=== PATIENT | female | born 2000 | race Hispanic/Latino ===

== ENCOUNTER 2019-05-08 20:41 | Emergency (ER) | payer BC ==
[~2019-05-08] VITALS: Ht 175.3 cm; Wt 54.4 kg
[2019-05-08 23:25] LABS: BILIRUBIN,URINE NEGATIVE (NEGATIVE); CLARITY,URINE CLOUDY (CLEAR); COLOR,URINE YELLOW (YELLOW); KETONES,URINE NEGATIVE (NEGATIVE); LEUKOCYTE ESTERASE ,URINE TRACE (NEGATIVE); NITRITE,URINE POSITIVE (NEGATIVE); URINE UROBILINOGEN 0.2 mg/dL (0.2 - 1)
[2019-05-08 23:33] LABS: PROTEIN,URINE DIPSTICK 3+ (NEGATIVE)
[2019-05-08 23:34] LABS: PREGNANCY TEST, URINE NEGATIVE (NEGATIVE)
[2019-05-08 23:54] LABS: WBC,URINE (MAN) >50 /HPF (0-5)
[2019-05-08 23:55] LABS: BACTERIA,URINE MANY /HPF; EPITHELIAL CELLS,URINE FEW /LPF; MUCUS,URINE MANY (RARE); RBC,URINE >50 /HPF (0-5); RENAL EPITHELIAL CELLS,URINE FEW; TRANSITIONAL EPI CELLS,URINE FEW
[2019-05-09] MEDS ORDERED: MACROBID 100 M100 MG PO (00:26)
[2019-05-09] MEDS ORDERED: PYRIDIUM100 MG PO (00:27)
[2019-05-09] MEDS ORDERED: NITROFURANTOIN MACROCRYSTALS 100 MG CAP PO ONE (00:30)
[2019-05-09 03:06] VITALS: BP 118/73
[2019-05-09] MEDS ORDERED: PHENAZOPYRIDINE HCL 100 MG TAB PO SCH (09:00)
== END 2019-05-09 00:30 | disposition home or self-care (01) ==
LOC: ER 20:41
DX: R10.30 Lower abdominal pain, unspecified (principal); N30.91 Cystitis, unspecified with hematuria
CPT/HCPCS: 81001; 81025; 87086; 87186; 99282